=== PATIENT | female | born 1990 | race Caucasian/White ===

== ENCOUNTER 2017-11-17 15:30 | Outpatient (RCR) | payer BC, MEDICAID, SELFPAY ==
--- NOTE | 2017-07-19 12:07 | HP.SP.PED_ITS ---
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 - History History: Patient has not received speech therapy services since graduating from high school. Patient's mom feels she is losing her ability to communicate well since graduating from school in 2012. Subjective Social Pragmatic - Subjective Parent Concerns: Patient is losing ability to communicate well since garduating [id number] from high school. Additional Information: Brett and her mom were present during evaluation. Patient's mother stated patient does not tend to tell her things that affect her such as pain or when something is wrong. Mother gave an example as patient burned herself on a light and the only way she found out was that she overheard her telling her aunt. another example was that patient had fallen at the adult rehab tht she goes to and patient did not tell mom it hurt. Mom didn' t know it was hurting her until she asked her to pick something up for her that evening and patient stated that she couldn't because her hand hurt. Patient ended up having a spranged wrist. Patient currently goes to an adult day rehab 3 days a week were they work on crafts or have day outings. Mother stated that patient has started to be obsessed with certain staff members and that if they don't go on the outings then she will elect not to go. During session, patient frequently named the staff members and aunt that she liked and that she would tell them things. Currently patient does not work at any workshop or adapted job that is appropriate for her ability and cognitive skills. Patient has difficulty with money skills and telling time. Patient has difficulty identifying safety concerns. Plan - Prognosis Prognosis: Good - Frequency Frequency: 1x/Week Duration: 2-4 Months Visits in this POC: 30 - Patient/Family Goal Patient/Family Goal: To be aware of saftey concerns and to be able to communicate her needs to the appropriate person and within an appropriate timeframe. - Goal #1-5 Goal #1: Patient will work on social pragmatic communicative skills which will focus communicating her needs to the appropriate person and within an appropriate time frame as will be measured by parent's report. Goal #2: Patient will work on social pragmatic communicative skills which will focus on communication skills to be used in socia scenarios or in place of work Education - Patient has Indicated that the Following Identified Educational Needs: Language Barrier, Other Other Educational Needs: Patient has down syndrome, parent was interviewed. - Patient Instruction Patient Education: Treatment Plan Person Taught: Family Teaching Method: Discussion Response to teaching: Verbalize understanding
== END 2017-11-17 19:00 | disposition home or self-care (01) ==
LOC: SP 15:30
PROVIDERS: Family Provider Internal Medicine; PCP Internal Medicine; Visit Provider Internal Medicine
DX: R41.841 Cognitive communication deficit (principal); F80.9 Developmental disorder of speech and language, unspecified
CPT/HCPCS: 92507; 92523

== ENCOUNTER → 2018-02-01 09:02 | Outpatient (CLI) | payer BC, MEDICAID, SELFPAY ==
--- NOTE | 2018-02-01 09:12 | ECHOD_ITS ---
Reason For Study: pulmonary valve stenosis Procedure This was a 2D Doppler, Color Flow transthoracic echocardiogram. The study was technically difficult. Patient was anxious. Exam performed in department. Left Ventricle Normal LV size. Left ventricular systolic function is normal. The estimated ejection fraction is 60 %. Normal diastology for age. No regional wall motion abnormalities noted. Right Ventricle Normal RV size. Normal systolic function. Atria Normal left atrium. Normal right atrium. Mitral Valve Normal mitral valve. Tricuspid Valve Normal tricuspid valve. Mild (1+) tricuspid valve insufficiency. Aortic Valve Normal aortic valve. Trisinus/trileaflet aortic valve. Pulmonic Valve Normal pulmonic valve. Great Vessels Normal aortic root. The pulmonary artery is normal size. Normal inferior vena cava. Pericardium/Pleural No pericardial effusion. MMode/2D Measurements & Calculations LVIDd: 4.1 cm IVSd: 0.69 cm Ao root diam: 2.5 cm LVIDs: 2.4 cm LVPWd: 0.70 cm LA dimension: 2.9 cm FS: 41.3 % LAV(MOD-bp): 29.5 ml LA A4 area: 10.6 cm2 RA A4 area: 7.7 cm2 LAV(MOD-bp) Indexed: 19.6 ml/m2 LAV(MOD-sp2): 28.9 ml LAV(MOD-sp4): 25.6 ml Time Measurements MV dec time: 0.21 sec Doppler Measurements & Calculations MV E max abram: 96.5 cm/sec Lat Peak E' Abram: 8.2 cm/sec Med Peak E' Abram: 9.4 cm/sec MV A max abram: 82.0 cm/sec E/E' lat: 11.8 E/E' med: 10.2 MV E/A: 1.2 Ao V2 max: 121.5 cm/sec LV V1 max: 84.1 cm/sec PA V2 max: 130.5 cm/sec Ao max P.9 mmHg LV V1 max P.8 mmHg PA V2 mean: 88.5 cm/sec PA V2 VTI: 26.1 cm TR max abram: 228.4 cm/sec TR max P.9 mmHg Interpretation Summary Normal LV size. Left ventricular systolic function is normal. The estimated ejection fraction is 60 %. Normal diastology for age. No pulmonic stenosis Ordering Physician: Marcelle Nicholson Referring Physician: Marcelle Nicholson Performed By: Ally Torres, KRISTINE, RVT
--- OUTSIDE RECORDS SUMMARY | 2018-05-05 20:26 | XMS RPT_ITS ---
:1990 Author Organization OHIP Care Team Providers Name Role Phone Bharat DO, Marcelle Attending Unavailable Bharat DO, Marcelle Referring Unavailable Bharat DO, Marcelle Consulting Unavailable Bharat, Marcelle Attending Unavailable Bharat, Marcelle Referring Unavailable Bharat, Marcelle Primary Care Unavailable Gregoria, Larry Attending Unavailable Bharat, Marcelle Referring Unavailable Bharat, Marcelle Attending Unavailable Bharat, Marcelle Referring Unavailable Bharat, Marcelle Primary Care Unavailable Bharat, Marcelle Attending Unavailable Bharat, Marcelle Referring Unavailable Bharat, Marcelle Primary Care Unavailable PROBLEMS PROBLEMS DATE TYPE CONDITION / CODE ATTENDING STATUS SOURCE 02/02/2018 Unknown R41.841 - Cognitive Bharat, Active [facility] communication [facility] deficit / Hospital R41.841(ICD-10) Repository 02/02/2018 Unknown F80.9 - Bharat, Active [facility] disorder of speech Hospital and language, Repository unspecified / F80.9(ICD-10) PROCEDURES PROCEDURES No Procedure Records FoundRESULTS RESULTS ECHOCARDIOGRAM COMPLETE Observed: 02/01/2018 Status: F Source: [place] 10:44 AM [facility] REPOSITORY [facility] Cardiovascular Services [address] [place] [address] Echo Complete 02/01/18 0909 MR#: [id number] Acct: [id number] Name: STEVE PHILLIPS Rep #: [id number] : 1990 From: Larry Kinney MD Attending Dr: Marcelle Nicholson DO Status: REG CLI Ordering Dr: Marcelle Nicholson DO Date: 02/01/18 Location: [facility] Sex: F C Admitted: Reason For Study: pulmonary valve stenosis Procedure This was a 2D Doppler, Color Flow transthoracic echocardiogram. The study was technically difficult. Patient was anxious. Exam performed in department. Left Ventricle Normal LV size. Left ventricular systolic function is normal. The estimated ejection fraction is 60 %. Normal diastology for age. No regional wall motion abnormalities noted. Right Ventricle Normal RV size. Normal systolic function. Atria Normal left atrium. Normal right atrium. Mitral Valve Normal mitral valve. Tricuspid Valve Normal tricuspid valve. Mild (1+) tricuspid valve insufficiency. Aortic Valve Normal aortic valve. Trisinus/trileaflet aortic valve. Pulmonic Valve Normal pulmonic valve. Great Vessels Normal aortic root. The pulmonary artery is normal size. Normal inferior vena cava. Pericardium/Pleural No pericardial effusion. MMode/2D Measurements AND Calculations LVIDd: 4.1 cm IVSd: 0.69 cm Ao root diam: 2.5 cm LVIDs: 2.4 cm LVPWd: 0.70 cm LA dimension: 2.9 cm FS: 41.3 % LAV(MOD-bp): 29.5 ml LA A4 area: 10.6 cm2 RA A4 area: 7.7 cm2 LAV(MOD-bp) Indexed: 19.6 ml/m2 LAV(MOD-sp2): 28.9 ml LAV(MOD-sp4): 25.6 ml Time Measurements MV dec time: 0.21 sec Doppler Measurements AND Calculations MV E max abram: 96.5 cm/sec Lat Peak E' Abram: 8.2 cm/sec Med Peak E' Abram: 9.4 cm/sec MV A max abram: 82.0 cm/sec E/E' lat: 11.8 E/E' med: 10.2 MV E/A: 1.2 Ao V2 max: 121.5 cm/sec LV V1 max: 84.1 cm/sec PA V2 max: 130.5 cm/sec Ao max P.9 mmHg LV V1 max P.8 mmHg PA V2 mean: 88.5 cm/sec PA V2 VTI: 26.1 cm TR max abram: 228.4 cm/sec TR max P.9 mmHg Interpretation Summary Normal LV size. Left ventricular systolic function is normal. The estimated ejection fraction is 60 %. Normal diastology for age. No pulmonic stenosis Ordering Physician: Marcelle Nicholson Referring Physician: Marcelle Nicholson Performed By: Ally Torres RDCS, RVT 02/01/18 1044 Date Larry Kinney MD CC: Marcelle Nicholson DO Date Dictated: 02/01/18908 Date Transcribed: 02/01/18 1044 Comber Tender: Signed PEDIATRIC EVALUATION - Observed: 07/19/2017 Status: F Source: [facility] 12:07 PM [facility] REPOSITORY [facility] Speech Pathology [facility] 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 - History History: Patient has not received speech therapy services since graduating from high school. Patient's mom feels she is losing her ability to communicate well since graduating from school in 2012. Subjective Social Pragmatic - Subjective Parent Concerns: Patient is losing ability to communicate well since garduating [id number] from high school. Additional Information: Brett and her mom were present during evaluation. Patient's mother stated patient does not tend to tell her things that affect her such as pain or when something is wrong. Mother gave an example as patient burned herself on a light and the only way she found out was that she overheard her telling her aunt. another example was that patient had fallen at the adult rehab tht she goes to and patient did not tell mom it hurt. Mom didn't know it was hurting her until she asked her to pick something up for her that evening and patient stated that she couldn't because her hand hurt. Patient ended up having a spranged wrist. Patient currently goes to an adult day rehab 3 days a week were they work on crafts or have day outings. Mother stated that patient has started to be obsessed with certain staff members and that if they don't go on the outings then she will elect not to go. During session, patient frequently named the staff members and aunt that she liked and that she would tell them things. Currently patient does not work at any workshop or adapted job that is appropriate for her ability and cognitive skills. Patient has difficulty with money skills and telling time. Patient has difficulty identifying safety concerns. Plan - Prognosis Prognosis: Good - Frequency Frequency: 1x/Week Duration: 2-4 Months Visits in this POC: 30 - Patient/Family Goal Patient/Family Goal: To be aware of saftey concerns and to be able to communicate her needs to the appropriate person and within an appropriate timeframe. - Goal #1-5 Goal #1: Patient will work on social pragmatic communicative skills which will focus communicating her needs to the appropriate person and within an appropriate time frame as will be measured by parent's report. Goal #2: Patient will work on social pragmatic communicative skills which will focus on communication skills to be used in socia scenarios or in place of work Education - Patient has Indicated that the Following Identified Educational Needs: Language Barrier, Other Other Educational Needs: Patient has down syndrome, parent was interviewed. - Patient Instruction Patient Education: Treatment Plan Person Taught: Family Teaching Method: Discussion Response to teaching: Verbalize understanding <Electronically signed by Lilia Napier M.S., [facility]> 07/19/17 1207 CC: Marcelle Nicholson DO Signed For Medicare only, by signing this I certify the plan of care. Physicians Signature Date ALLERGIES ALLERGIES No Allergies Records FoundENCOUNTERS ENCOUNTERS ADMIT/DISCHARGE ACCOUNT ADMITTING ENCOUNTER LOCATION SOURCE NUMBER [facility] 02/02/2018 [id number] Ambulatory [facility] ing:SP Repository 02/01/2018 [id number] Ambulatory Arnold [facility] ing:[facility] Repository 02/01/2018 [id number] Ambulatory BMSBuilding:W [facility] Hospital Repository 12/24/2017 [id number] Ambulatory Building:[facility] [place] Practices Repository 11/17/2017/ [id number] Ambulatory Arnold [facility] 8 1 [facility] ing:SP Repository PAYERS PAYERS ENCOUNTER GUARANTOR PAYER SUBSCRIBER SOURCE 02/02/2018 STEVE Obando Primary [place] A PHILLIPS [facility] [id number] CENTER Insurance:ANTHEMPolic Jr.: [facility] [place], y Number: [id number] [address]Tfb: [id number] Repository chato Date:[id number] () [address], [place] [address]XJ: 02/02/2018 Secondary STEVE Obando [facility] Insurance:MEDICAIDPol YODERDOB: [facility] ic Number: [id number] Hospital [id number] Repository Date:2017-12-17 02/02/2018 Tertiary NOT GIVENUNK [facility] Insurance:SELF PAY [facility] Number: Effective Repository Date:2018-01-08 02/01/2018 STEVE Obando Primary [place] A PHILLIPS Arnold [id number] CENTER Insurance:ANTHEMPolic Jr.: [facility] [place], y Number: [id number] [facility] [address]Cem: [id number] Repository chato Date:[id number] () [address], [place] [address]HR: 02/01/2018 Secondary STEVE Obando Arnold Insurance:MEDICAIDPol YODERDOB: [facility] icy Number: [id number] Hospital [id number] Repository Date:2018-01-14 02/01/2018 Tertiary NOT GIVENUNK [facility] Insurance:SELF PAY [facility] Number: Effective Repository Date:2018-01-14 02/01/2018 STEVE Obando Primary [place] A PHILLIPS Arnold [id number] CENTER Insurance:ANTHEMPolic Jr.: [facility] [place], y Number: [id number] [facility] [address]Cxz: [id number] Repository chato Date:[id number] (HP) [address], [place] [address]PH: 02/01/2018 Secondary STEVE Obando [facility] Insurance:MEDICAIDPol YODERDOB: Community icy Number: [id number] Hospital [id number] Repository Date:2018-01-14 02/01/2018 Tertiary NOT GIVENUNK Arnlod Insurance:SELF PAY [facility] Number: Effective Repository Date:2018-02-01 12/24/2017 Steve Obando Primary [place] OHIP Practices YoderDOB: Insurance:[place] YoderDOB: Repository /BSPolicy Number: [id number] [id number] 2 [place], [place], [place] [address]Zzn: 419) Date:[id number] [address]Mjc: (HP) Name:[phone] () [address], [place] [id number]: 12/24/2017 Secondary Steve K OHIP Practices Insurance:MedicaidPol YoderDOB: Repository icy Number: [id number] [address] [place] Date:5838-00-95[place] Name:[address] [address]Qyn: [phone], [place] [phone] (HP) [address]AC: 11/17/2017 Steve Obando Primary [place] A PHILLIPS Ry[facility] [id number] CENTER Insurance:ANTHEMPolic Jr.: [facility] Number: [id number] [address]Bby: [id number] Repository chato Date:[id number] () [address], [place] [address]DU: 11/17/2017 Secondary Steve K [facility] Insurance:MEDICAIDPol YoderDOB: Community icy Number: [id number] Hospital [id number] Repository Date:2017-02-16 11/17/2017 Tertiary NOT GIVENUNK Ryder Insurance:SELF PAY [facility] Number: Effective Repository Date:2017-06-11
== END ==
PROVIDERS: Family Provider Internal Medicine; PCP Internal Medicine; Referring Provider Internal Medicine; Visit Provider Internal Medicine
DX: I37.0 Nonrheumatic pulmonary valve stenosis (principal)
CPT/HCPCS: 93306

== ENCOUNTER 2018-03-16 10:00 | Outpatient (RCR) | payer BC, MEDICAID, SELFPAY ==
--- NOTE | 2018-07-01 15:12 | HP.SP.DC ---
ST Discharge Summary - Discharged: Discharge: Patient was initially evaluated 06/25/17 with the following objectives:(1)to work on social pragmatic communicative skills which will focus communicating her needs to the appropriate person and within an appropriate time frame as will be measured by parent's report. And (2). Patient will work on social pragmatic communicative skills which will focus on communication skills to be used in social scenarios or in place of work. Patient attended 8 visits and continued to work on these objectives and made progress on both objectives. Therapist help her complete an application for a job at the [employer] to allow her to work in social situations. Patient began working there needing mild-moderate cueing on social appropriate pragmatic language skills. Patient has not scheduled any additional visits and has been discharged from speech therapy.
== END 2018-03-16 19:00 | disposition home or self-care (01) ==
LOC: SP 10:00
PROVIDERS: Family Provider Internal Medicine; PCP Internal Medicine; Referring Provider Internal Medicine; Visit Provider Internal Medicine
DX: R41.841 Cognitive communication deficit (principal); F80.9 Developmental disorder of speech and language, unspecified
CPT/HCPCS: 92507

== ENCOUNTER 2021-03-05 18:13 | Outpatient (CLI) | payer BC, MEDICAID, SELFPAY ==
[2021-03-05 18:29] VITALS: BP 129/72; PULSE 59; RESP 16; TEMP 36.3; O2SAT 99; BMI 31.7
[2021-03-05 19:13] VITALS: BP 125/72; PULSE 88; RESP 16; TEMP 36.7; O2SAT 99
[2021-03-05 19:57] VITALS: BP 122/61; PULSE 61; RESP 16; TEMP 36.5; O2SAT 100
== END 2021-03-05 23:59 | disposition home or self-care (01) ==
LOC: MS3OUT 18:19 → MS3 18:20
PROVIDERS: PCP Internal Medicine; Visit Provider Nurse Practitioner Acute Care
DX: Z23 Encounter for immunization (principal); U07.1 COVID-19
CPT/HCPCS: J7050; M0245; Q0245

== ENCOUNTER → 2021-11-15 | Outpatient (CLI) | payer BC, MEDICAID, SELFPAY ==
--- NOTE | 2021-11-15 13:33 | ECHOD_ITS ---
Reason For Study: PULMONARY VALVE STENOSIS Procedure This was a 2D Doppler, Color Flow transthoracic echocardiogram. Technically difficult due to patient being nervous. Exam performed in department. Left Ventricle The left ventricle is normal in size, thickness, and systolic function. The left ventricular ejection fraction is 65 %. Right Ventricle Normal right ventricle. Atria The left and right atria are normal. Mitral Valve Trivial mitral valve insufficiency. Tricuspid Valve Mild tricuspid valve insufficiency. Pulmonary artery systolic pressure is 31 mmHg. Aortic Valve Normal aortic valve. Pulmonic Valve There is no pulmonic valvular stenosis. Great Vessels Normal sized aortic root. Pericardium/Pleural No pericardial effusion. MMode/2D Measurements & Calculations Ao root diam: 2.1 cm LAV(MOD-bp): 20.4 ml RVOT diam: 1.9 cm LAV(MOD-bp) Indexed: 13.6 ml/m2 LAV(MOD-sp2): 20.5 ml LAV(MOD-sp4): 16.6 ml SV(MOD-sp4): 14.3 ml SV(sp4-el): 15.9 ml LVAd ap4: 14.3 cm2 LVLd ap4: 5.8 cm EDV(MOD-sp4): 29.7 ml EDV(sp4-el): 30.0 ml LVAs ap4: 9.4 cm2 LVLs ap4: 5.3 cm ESV(MOD-sp4): 15.4 ml ESV(sp4-el): 14.1 ml EF(MOD-sp4): 48.2 % EF(sp4-el): 52.9 % LA A4 area: 9.2 cm2 LA dimension(2D): 2.9 cm RA A4 area: 8.0 cm2 Time Measurements MV dec time: 0.16 sec Doppler Measurements & Calculations MV E max dariana: 100.4 cm/sec MV V2 max: 115.2 cm/sec MV dec slope: 622.7 cm/sec2 MV A max dariana: 79.8 cm/sec MV max P.3 mmHg MV E/A: 1.3 MV V2 mean: 60.1 cm/sec MV mean P.8 mmHg MV V2 VTI: 35.9 cm Ao V2 max: 126.7 cm/sec LV V1 max: 109.5 cm/sec PA V2 max: 120.6 cm/sec Ao max P.4 mmHg LV V1 max P.8 mmHg PA max PG (full): 3.7 mmHg Ao V2 mean: 94.4 cm/sec LV V1 mean P.6 mmHg PA V2 mean: 82.4 cm/sec Ao mean P.9 mmHg LV V1 mean: 73.9 cm/sec PA mean PG (full): 1.7 mmHg Ao V2 VTI: 31.4 cm LV V1 VTI: 22.1 cm PA V2 VTI: 26.9 cm SV(RVOT): 53.3 ml TR max dariana: 256.3 cm/sec TR max P.3 mmHg ECHO/Echo Complete Interpretation Summary The left ventricular ejection fraction is 65 %. Mild tricuspid valve insufficiency. Ordering Physician: Marcelle Nicholson Referring Physician: Marcelle Nicholson Performed By: Filomena Lorenzo RCS
== END | disposition home or self-care (01) ==
PROVIDERS: PCP Internal Medicine; Referring Provider Internal Medicine; Visit Provider Internal Medicine
DX: I37.0 Nonrheumatic pulmonary valve stenosis (principal)
CPT/HCPCS: 93306

== ENCOUNTER 2022-02-04 07:42 | Emergency (ER) | payer BC, MEDICAID, SELFPAY ==
[2022-02-04 07:43] VITALS: BP 112/46; PULSE 65; RESP 18; TEMP 36.6; O2SAT 100; BMI 26.1
--- NOTE | 2022-02-04 07:57 | CT_ITS ---
STUDY: CT ABDOMEN AND PELVIS WITH CONTRAST REASON FOR EXAM: Female, 31 years old. One-day history of left lower quadrant pain. Vomiting. RADIATION DOSAGE (If Supplied By Facility): CTDIvol = ( 8.97 ) mGy, DLP = ( 426.09 ) mGycm TECHNIQUE: Transaxial images were obtained from the dome of the diaphragm to the symphysis pubis without oral contrast. Oral and amp; IV Gastrografin and amp; 75mL Isovue-300 was administered. Sagittal and coronal images were reconstructed. Individualized dose optimization techniques were used for this CT. COMPARISON: None. FINDINGS: The visualized lung bases are unremarkable. The visualized portions of the heart are within normal limits. Normal liver. Normal gallbladder and extrahepatic biliary system. Normal spleen. Normal pancreas. Normal bilateral adrenal glands. Normal right kidney. Normal left kidney. There is a small hiatal hernia. Normal small intestine. Normal colon. The appendix is visualized and appears normal. Normal abdominal aorta. Normal inferior vena cava. Normal retroperitoneum. Normal urinary bladder. Small amount of fluid is seen in the cul-de-sac. A dominant follicle measuring 1.9 cm x 0.9 cm is seen in the right ovary. Normal abdominal wall. Limbus vertebrae in the anterior superior aspect of the T12 vertebrae with the underlying sclerosis. CT/Abdomen/Pelvis WITH Contrast IMPRESSION: Dominant follicle in the right ovary. Small amount of free fluid in the cul-de-sac. Electronically Signed: Beto Flynn MD at 11:33 EST ,
--- NOTE | 2022-02-04 07:58 | EX.ED.DYSGE1 ---
HPI History of Present Illness Chief Complaint: Abd Pain Narrative Narrative: Patient presents with epigastric pain and left upper quadrant pain, apparently she was on the toilet screaming per parents. She has a history of abdominal pain however they have not had a diagnosis for this and she has not been seeing her PCP for these apparently usually resolve on their own. Today was worse. She seems to be improved now. No recent constipation that the mom knows of, no recent fevers or chills. PFSH PFSH Medical History no medical history Home Medications levothyroxine 125 mcg tablet (Synthroid) 125 mcg PO DAILY 03/05/21 [History Last Taken Unknown] Allergy/AdvReac Type Severity Reaction Status Date / Time cefaclor [From Ceclor] Allergy Mild unknown Verified 02/04/22 07:45 Lactobacillus acidophilus Allergy Mild hives Verified 02/04/22 07:45 [From Acidophilus] Sulfa (Sulfonamide Allergy Mild hives Verified 02/04/22 07:45 Antibiotics) milk AdvReac Mild causes Verified 02/04/22 07:45 congestion Surgical History no surgical history Social History Smoking Status: Never smoker ROS ROS ED ROS Narrative Past medical history: Reviewed, she is MRDD and Down syndrome, she has hypothyroidism. Medications: Reviewed Social history: Noncontributory Review of systems: Patient is minimally verbal with MRDD I cannot get any review of systems from her other than the history that the mom gave me. EXAM Physical Exam Narrative Exam Narrative: Physical exam General: Patient appears comfortable. MRDD and Down's features. Head: Normocephalic, Atraumatic Eyes: Conjunctiva not pale ENT: Moist mucous membranes Neck: Supple, Nontender, No lymphadenopathy Cardiovascular: Regular rate, Regular rhythm. I cannot appreciate a murmur but it is loud in the room. Respiratory: No distress, CTA bilaterally Abdomen: Soft, she seems to withdraw when I palpate her epigastrium and left upper quadrant as well as left mid abdomen. She does not seem to have any pain on the right. Back: Nontender, Normal Inspection. Negative for: CVA tenderness Extremities: Nontender, No edema Skin: Normal color, No rash Neurological: Alert, Normal Strength, Normal Sensation Psychological: Normal affect Const Vital Signs: 02/04/22 07:43 02/04/22 09:43 02/04/22 11:00 Temperature 97.9 F 98.1 F 98.3 F Temperature Source Temporal Temporal Temporal Pulse Rate 65 76 80 Respiratory Rate 18 16 18 Blood Pressure 112/46 L 114/74 118/78 Blood Pressure Mean 68 87 91 Pulse Ox 100 97 96 Oxygen Delivery Method Room Air Room Air Room Air MDM MDM MDM Narrative Medical decision making narrative: Patient's work-up is relatively unremarkable there is an ovarian cyst with small amount of fluid in the cul-de-sac, this may cause her pain however she is now improved and I believe she is safe for discharge if anything changes family is to bring her back. Lab Data Labs: Laboratory Results - last 24 hr 02/04/22 02/04/22 10:35 10:35 WBC 10.5 RBC 4.44 Hgb 14.9 Hct 45.5 MCV 102.5 H MCH 33.6 H MCHC 32.7 RDW Std Deviation 49.2 H RDW Coeff of Francisco Javier 13.2 Plt Count 297 MPV 10.0 Immature Gran % (Auto) 1.700 H Neut % (Auto) 75.6 H Lymph % (Auto) 16.3 L [place] % (Auto) 5.4 Eos % (Auto) 0.2 Baso % (Auto) 0.8 Absolute Neuts (auto) 8.0 H Absolute Lymphs (auto) 1.72 Nucleated RBC % 0 Sodium 142 Potassium 4.3 Chloride 108 H Carbon Dioxide 31.0 Anion Gap 3 L BUN 15 Creatinine 0.92 Estim Creat Clear Calc 80.03 Est GFR (MDRD) Af Amer 91 Est GFR (MDRD) Non-Af 75 BUN/Creatinine Ratio 16.3 Glucose 109 H Calcium 9.0 Total Bilirubin 0.60 AST 19 ALT 43 Alkaline Phosphatase 85 Total Protein 7.2 Albumin 3.3 Globulin 3.9 Albumin/Globulin Ratio 0.8 L Lipase 112 Radiography Diagnostic Testing: Clinical Impression(s) from Imaging Studies Abdomen/Pelvis CT 02/04/22 07:57 IMPRESSION: Dominant follicle in the right ovary. Small amount of free fluid in the cul-de-sac. Electronically Signed: Beto Flynn MD at 11:33 EST , Discharge Plan Triage Chief Complaint: Abd Pain ED Provider: Saúl Jj Dx/Rx/DC Orders Clinical Impression: Down's syndrome, Abdominal pain Instructions: Abdominal Pain Prescriptions: No Action levothyroxine [Synthroid] 125 mcg tablet 125 mcg PO DAILY Primary Care Provider: Marcelle Nicholson Referrals: Marcelle Nicholson DO [Primary Care Provider] - 3-5 Days Disposition Disposition: Home, Self Care
[2022-02-04 09:43] VITALS: BP 114/74; PULSE 76; RESP 16; TEMP 36.7; O2SAT 97
[2022-02-04] MEDS: LORazepam 2 MG/ML Syringe 1 MG IM (09:46)
[2022-02-04 10:47] LABS: Absolute Lymphocyte Count 1.72 X10^3/uL (0.83-4.51); Basophil# 0.08 X10^3/uL; Basophil% 0.8 % (0-1); Eosinophil# 0.02 X10^3/uL; Eosinophils% 0.2 % (0-5); Hematocrit 45.5 % (37-47); Hemoglobin 14.9 g/dL (12.0-15.0); Lymphocyte # 1.72 X10^3/ul (0.83-4.51); Lymphocyte % 16.3 % (19-41); Mean Corp Hgb Conc 32.7 g/dL (32-36); Mean Corpuscular Hgb 33.6 pg (27.0-32.0); Mean Corpuscular Volume 102.5 fL (81-99); Monocyte# 0.57 X10^3/uL; Monocyte% 5.4 % (0-10); NRBC Flagged by Analyzer 0 % (0-5); Neutrophil # 7.96 X10^3/uL (2.7-7.7); Neutrophil % 75.6 % (47-70); Platelet Count 297 K/mm3 (150-450); RBC Distribution Width CV 13.2 % (11.6-14.6); RBC Distribution Width SD 49.2 fl (35.1-43.9); Red Blood Count 4.44 M/mm3 (4.2-5.4); White Blood Count 10.5 K/mm3 (4.4-11.0)
[2022-02-04] MEDS: Ondansetron 4 MG/2 ML Vial IV (10:55)
[2022-02-04 11:00] VITALS: BP 118/78; PULSE 80; RESP 18; TEMP 36.8; O2SAT 96
[2022-02-04] MEDS: Morphine 4 MG/ML Syringe IV (11:03)
[2022-02-04] MEDS: Famotidine 200 MG/20 ML MDV 20 MG in 0.9% Normal Saline (Pres. free 8 ML 300 MG IV (11:03)
[2022-02-04 11:04] LABS: ALB/GLOB Ratio 0.8 RATIO (0.9-2.4); AST(SGOT) 19 U/L (15-37); Alanine Aminotransfer ALT/SGPT 43 U/L (13-56); Albumin, Serum 3.3 g/dL (3.2-5.0); Alkaline Phosphatase 85 U/L (45-117); Anion Gap 3 (5-15); BUN 15 mg/dL (7-18); BUN/Creat Ratio 16.3 RATIO (10-20); Chloride 108 mmol/L (98-107); Creatinine, Serum 0.92 mg/dL (0.55-1.02); EST Glomerular Filtration Rate 75 mL/min (>60); Est Glom Filt Rate - Afr Amer 91 mL/min (>60); Estimated Creatinine Clearance 80.03 ml/min; Globulin 3.9 g/dL (2.2-4.2); Glucose 109 mg/dL (74-106); Lipase 112 U/L (73-393); Potassium 4.3 mmol/L (3.5-5.1); Protein, Total 7.2 g/dL (6.4-8.2); Sodium Level 142 mmol/L (136-145)
== END 2022-02-04 12:52 | disposition home or self-care (01) ==
PROVIDERS: Emergency Provider Emergency Medicine; PCP Internal Medicine; Visit Provider Emergency Medicine
DX: Q90.9 Down syndrome, unspecified (principal); R10.9 Unspecified abdominal pain; Z79.899 Other long term (current) drug therapy
CPT/HCPCS: 74177; 80053; 83690; 85025; 96372; 96374; 96375; 99283; J7040; Q9967; A4216; J2405; J3490